=== PATIENT | female | born 1990 | race Hispanic/Latino ===

== ENCOUNTER 2020-04-02 21:02 | Emergency (ER) | payer BC ==
[2020-04-02 21:45] LABS: HCG,QUAL RESULT NEGATIVE (NEGATIVE)
[2020-04-02 21:46] LABS: APPEARANCE,URINE Clear (CLEAR); BILIRUBIN,URINE Negative (NEGATIVE); COLOR,URINE Yellow (YELLOW); GLUCOSE, URINE (UA) Negative (NEGATIVE); KETONES,URINE Negative (NEGATIVE); LEUKOCYTE ESTERASE ,URINE Negative (NEGATIVE); NITRATE,URINE Negative (NEGATIVE); OCCULT BLOOD,URINE Negative (NEGATIVE); PROTEIN,URINE Negative (NEGATIVE); UROBILINOGEN,URINE 0.2 mg/dL (0.2-1.0)
[2020-04-02] MEDS ORDERED: ASPIRIN 325 MG TABLET ONE (21:46)
[2020-04-02 22:09] LABS: AMPHET/METH SCREEN,URINE NEGATIVE (NEGATIVE); BARBITURATE SCREEN, URINE NEGATIVE (NEGATIVE); BENZODIAZEPINES SCREEN,URINE NEGATIVE (NEGATIVE); CANNABINOID SCREEN,URINE NEGATIVE (NEGATIVE); COCAINE SCREEN,URINE NEGATIVE (NEGATIVE); OPIATE SCREEN,URINE NEGATIVE (NEGATIVE); PHENCYCLIDINE SCREEN,URINE NEGATIVE (NEGATIVE)
== END 2020-04-02 23:36 | disposition home or self-care (01) ==
LOC: EDH 21:02
DX: R07.89 Other chest pain (principal); F41.9 Anxiety disorder, unspecified; R06.4 Hyperventilation; Z20.822 Contact with and (suspected) exposure to COVID-19
CPT/HCPCS: 36415; 71045; 80305; 81003; 81025; 84443; 84484; 87088; 87426; 93005; 99285; U0003